=== PATIENT | female | born 1945 | race Caucasian/White ===

== ENCOUNTER → 2017-03-31 | Outpatient (CLI) | payer MEDICARE ==
[~2017-03-31] MED LIST: ALDACTONE50 MG PO; ALIGN4 MG PO; ALPRAZOLAM0.5 M3 PO; AMITRIPTYLINE 550 MG PO; ASPIRIN325 M1 PO; ATENOLOL50 M1 PO; AZITHROMYCIN250 M1 PO; COLACE100 MG/10 PO; COREG 12.5 MG12.5 MG PO; COREG 6.25MG6.25 MG PO; CYCLOBENZ5 MG PO; CYMBALTA60 MG PO; FLAGYL500 M1 PO; FUROSEMIDE 40MG40 M1 PO; GABAPENTIN 600600 MG PO; HYDROCHLOROTHIA25 M1 PO; INSULIN GL100 UNITS/ SC; K-DUR 2020 MEQ PO; KLONOPIN 0.5MG0.5 MG PO; LACTULOSE10 GM/15 M PO; LASIX 40MG. TAB40 MG PO; LASIX 80MG. TAB80 MG PO; LEVAQUIN500 MG PO; LISINOPRIL2.5 M1 PO; METFORMIN HCL1000 MG PO; METOLAZONE 2.52.5 MG PO; MORPHINE SULFAT15 M2 PO; MORPHINE SULFAT15 M4 PO; MORPHINE SULFAT30 M1 PO; MORPHINE SULFAT30 M3 PO; MORPHINE SULFAT60 MG PO; OMNICEF 300 MG300 MG PO; OXYCODON-ACETAMINOPH OR; OXYCODONE HCL10 M1 PO; PHENERGAN 2525 MG/ML PO; RANITIDINE300 MG PO; SPIRONOLACTONE100 MG PO; SPIRONOLACTONE25 MG PO; TRESIBA FL200 UNIT/1 SQ; ZOFRAN ODT4 MG PO
[2017-03-31 14:48] LABS: BUN 18 mg/dL (7-18); GFR (ESTIMATED) 37 ML/MIN (59-)
== END ==
LOC: LAB 13:07
PROVIDERS: Internal Medicine Adolescent Medicine
DX: K75.81 Nonalcoholic steatohepatitis (NASH) (principal); E11.9 Type 2 diabetes mellitus without complications